=== PATIENT | female | born 1980 | race Caucasian/White ===

== ENCOUNTER 2023-07-10 15:37 | Emergency (ER) | payer OTHER, SELFPAY ==
[2023-07-10 16:27] VITALS: BP 106/74; PULSE 102; RESP 16; TEMP 36.6; O2SAT 93; BMI 37.5
--- NOTE | 2023-07-10 16:32 | ED.MEDCLEAR ---
HPI - Medical Clearance General Chief complaint: Medical Clearance Stated complaint: medical clearance Time Seen by Provider: 07/10/23 19:27 Source: patient Mode of arrival: ambulatory Limitations: no limitations History of Present Illness ED Provider: Leonidas Cortes PA-C HPI Narrative: 43 yold female with pmh of susbtance abuse presents to the ED for medical clearnace for her detox program. patient was at a detox program and left them. Detox program recommends patient have a UTox test. patient is asympomatic. Related Information Allergies Allergy/AdvReac Type Severity Reaction Status Date / Time No Known Allergies Allergy Verified 07/10/23 16:28 Review of Systems Review of Systems: no complaints. Yes all other systems are reviewed and are negative PMFSH Social History Social History Advance Directives: No Advance Directives Information Provided: No Physical Exam Vital Signs: Vital Signs: Last Vital Signs Temp 97.8 F 07/10/23 19:55 Pulse 100 07/10/23 19:55 Resp 18 07/10/23 19:55 BP 105/57 L 07/10/23 19:55 Pulse Ox 96 07/10/23 19:55 O2 Del Method Room Air 07/10/23 19:55 BMI result Body Mass Index 37.5 Const: General: cooperative, healthy appearing, comfortable, no acute distress, well developed, alert, awake and Physically active Orientation/consciousness: oriented to person, oriented to place, oriented to time and patient oriented x3 HEENT: Head: Yes normal to inspection, Yes No palpable skull fracture present, Yes normocephalic and Yes atraumatic Ears: hearing grossly normal bilaterally, external ears normal, TM's normal bilaterally, TM normal on the right, TM normal on the left, EAC's normal, mastoids normal and no periauricular adenopathy Throat: Yes posterior oropharynx normal, Yes tonsils normal and Yes uvula midline Eyes: General: appearance normal, both eyes and all related structures Neck: Neck: Yes normal visual inspection, Yes full ROM, Yes no lymphadenopathy, Yes no meningeal signs, Yes trachea midline, Yes supple, No anterior neck swelling and No tender Chest: Chest palpation & inspection: normal inspection of the chest and normal palpation of entire chest wall Resp: Effort & Inspection: normal respiratory effort and able to speak in complete sentences Auscultation: clear to auscultation bilaterally Cardio: Jugular venous distension: no JVD Heart sounds: S1 normal heart sound present and S2 normal heart sound present GI: Inspection: Yes normal to inspection Palpation (GI): Soft to palpation, not firm, nontender, no guarding and not rigid : General: Yes no CVA tenderness Back/Spine/Pelvis: Back: no CVA tenderness and No back tenderness Skin: General skin exam: no rashes or lesions noted, elasticity normal and turgor normal Neuro: General: oriented to person, oriented to place, oriented to time, patient oriented x3, moves all extremities, Normal light touch and pain sensation, no meningeal signs, no focal motor deficits, CN's II-XI intact bilaterally and normal sensation to monofilament Extrem: General: Yes normal to inspection, Yes full ROM and Yes capillary refill normal Psych: Appearance: grossly normal, well kempt and not disheveled Course Course Course Narrative: RME: 43-year-old female presents to ED for medical clearance. Patient wants to go back to a detox program. Patient had left. They are requesting detox. Medical Decision Making Medical Decision Making [facility] Narrative: 43 yold female presents to the ED requestinf medical clearance detox. Detox program would like urine tox. Patient is not in distress. patient is well appearing. MORROW positive for benzos, amphetemines, and subaxone. Patient explaeined worrsiome signs and informed to follow up ED and PCP. Differential Diagnosis Differential Diagnoses: The differential diagnosis associated with the presentation includes (Substance uses) Admission/Observation Consideration of admission/observation: Escalation of care including admission/observation considered Lab Data [facility] Lab Attestation statement: I reviewed the patient's lab results. Labs: Lab Results 07/10/23 Range/Units 16:53 Urine Color Yellow Urine Appearance Clear Urine pH 5.5 (5.0-9.0) Ur Specific Lenora 1.025 (1.005-1.025) Urine Protein Trace (Neg-Trace) mg/dL Urine Glucose (UA) Negative (Negative) mg/dL Urine Ketones Trace (Negative) mg/dL Urine Blood Negative (Negative) Urine Nitrite Negative (Negative) Ur Leukocyte Esterase Negative (Negative) Urine Test NEGATIVE (NEGATIVE) Urine Opiates Screen Not Detected (Not Detect) Ur Buprenorphine Scrn Positive H (Not Detect) ng/mL Ur Oxycodone Screen Not Detected (Not Detect) ng/mL Urine Methadone Screen Not Detected (Not Detect) ng/mL Urine Fentanyl Screen Not Detected (Not Detect) Ur Barbiturates Screen Not Detected (Not Detect) Ur Phencyclidine Scrn Not Detected (Not Detect) Ur Amphetamines Screen POSITIVE H (Not Detect) U Benzodiazepines Scrn POSITIVE H (Not Detect) Urine Cocaine Screen Not Detected (Not Detect) U Marijuana (THC) Screen Not Detected (Not Detect) Independent Historian Clinical information obtained from an independent historian. History obtained from or confirmed by: Other (patient) External Record Review External record reviewed: Other (prior visits) Discharge Plan Discharge Clinical Impression: Normal exam Patient Disposition: Home, Self-Care Instructions: Normal Exam (ED) Additional Instructions: recommend follow-up with primary care provider. You may show your detox program your urine test. return to the ED for any concerning symptoms. Interventions: ED Discharge Assessment Last Done: 07/10/23 19:55 Discharge Date/Time: 07/10/23 19:55 Print Language: Ecuadorean
[2023-07-10 17:28] LABS: Appearance Urine Clear; Color Urine Yellow; Glucose Urine UA Negative (Negative); Leukocyte Esterase Urine Negative (Negative); Nitrite Urine Negative (Negative); PH 5.5 (5.0-9.0); Specific Gravity - Urine 1.025 (1.005-1.025); Urine Blood Negative (Negative); Urine Ketones Trace mg/dL (Negative); Urine Protein Trace mg/dL (Neg-Trace)
[2023-07-10 17:29] LABS: UPreg QC Valid YES; Urine Pregnancy NEGATIVE (NEGATIVE)
[2023-07-10 18:38] LABS: Amphetamine Screen Urine POSITIVE (Not Detect); Barbiturates, Urine Not Detected (Not Detect); Benzodiazepines Screen Urine POSITIVE (Not Detect); Buprenorphine Scr Positive (Not Detect); Cannabinoid Screen Urine Not Detected (Not Detect); Cocaine Screen Urine Not Detected (Not Detect); Fentanyl, urine Not Detected (Not Detect); Methadone Screen, Urine Not Detected (Not Detect); Opiate Screen Urine Not Detected (Not Detect); Oxycodone Screen Urine Not Detected (Not Detect); Phencyclidine Screen Urine Not Detected (Not Detect)
[2023-07-10 19:32] VITALS: BP 105/57; PULSE 100; RESP 18; TEMP 36.6; O2SAT 96
[2023-07-10 19:55] VITALS: BP 105/57; PULSE 100; RESP 18; TEMP 36.6; O2SAT 96
== END 2023-07-10 19:55 | disposition home or self-care (01) ==
PROVIDERS: Physician Assistant; Emergency Provider Emergency Medicine
DX: Z02.79 Encounter for issue of other medical certificate (principal); Z13.9 Encounter for screening, unspecified
CPT/HCPCS: 80307; 81003; 81025; 99282

== ENCOUNTER 2025-01-25 11:33 | Emergency (ER) | payer OTHER, SELFPAY ==
--- NOTE | ~2025-01-25 | CT_ITS ---
EXAMINATION: CT CHEST WITHOUT CONTRAST CLINICAL INFORMATION: Question infiltrate on chest x-ray. COMPARISON: Chest x-ray performed earlier today at 12:34 PM TECHNIQUE: Multidetector volumetric CT imaging of the chest was done. Axial MIP volume rendering provided. Sagittal and coronal reformatted images were obtained. This CT examination was performed using dose optimization techniques as appropriate, variously including the following: *Automated exposure control *Adjustment of mA and/or kV according to patient size (this includes techniques or standardized protocols for targeted exams where dose is matched to indication/reason for exam; i.e. extremities or head) *Use of iterative reconstruction technique DLP: 217. FINDINGS: [facility]: Well-expanded lungs with linear markings in the right lung base. LUNGS: Lungs are expanded with bilateral lower lobe and right middle lobe interstitial thickening likely chronic atelectasis or scarring. No acute consolidation, mass or nodule seen. MEDIASTINUM: There are lobes are symmetrical and normal. The central trachea and the bronchi are widely patent. Heart size and the great vessels are normal caliber. Small shotty lymph nodes seen in the mediastinum none of which are worrisome. No pericardial effusion seen. CORONARY ARTERY CALCIFICATION: None visualized on this study. PLEURA: Minimal bibasilar pleural thickening and likely tiny left pleural effusion. AXILLA: A small shotty lymph nodes in bilateral axilla which appear benign. The chest wall is unremarkable. UPPER ABDOMEN: Visualized unenhanced liver, spleen, gallbladder and adrenal glands are unremarkable. OSSEOUS STRUCTURES: No aggressive lytic or sclerotic process seen. CT/CT chest wo IV con IMPRESSION: Bilateral lower lobe and right middle lobe interstitial thickening likely chronic postinflammatory scarring or atelectasis. No acute consolidation seen. There is bilateral posterior pleural thickening with tiny left pleural effusion in dependent segments. Fleischner guidelines were followed. Electronically signed by: Christian Jin MD 01/25/2025 03:46 PM EST
--- NOTE | ~2025-01-25 | XR_ITS ---
EXAMINATION: XR CHEST CLINICAL INFORMATION: cough , hypoxia, recent influenza COMPARISON: None available. TECHNIQUE: AP portable view of the chest was obtained. FINDINGS: The cardiac, hilar, and mediastinal contours are normal. Lungs demonstrate linear changes of atelectasis in both lung bases. In the right lower lung there is a suggestion of increased peribronchial markings, for which developing inflammatory airways disease/bronchopneumonia is a consideration. No pneumothorax or effusion. No focal osseous or soft tissue abnormality. XR/XR chest 1V IMPRESSION: 1. Possible developing inflammatory airways disease/subtle bronchopneumonia in the right lower lobe, given the appropriate clinical context. 2. No effusions. 3. Linear type atelectasis or scarring in both lung bases. Electronically signed by: Shay Gamble MD 01/25/2025 12:45 PM [facility]
[2025-01-25 11:47] VITALS: BP 94/64; PULSE 80; O2SAT 93
[2025-01-25 11:50] VITALS: BP 109/75; PULSE 76; RESP 18; TEMP 36.4; O2SAT 88; BMI 27.6
--- NOTE | 2025-01-25 12:24 | ED_ITS ---
HPI - General Adult General Chief complaint: General Medical Stated complaint: LOW BLOOD PRESSURE Time Seen by Provider: 01/25/25 12:16 History of Present Illness ED Provider: [place] HPI narrative: 44 she has sent from a local psychiatric facility [facility] purportedly had low blood pressure is not documented what her blood pressure was this morning also had a sat of 88% on room air patient was recently at [facility] she is a poor historian herself [facility] it is discharge summary implies that she was there for least a few days mostly for psychiatric reasons, hallucination. Also was found to be pancytopenic which they attributed to influenza and the pancytopenia improved at discharge WBC 2.6 ANC 1100, platelets 162. Discharge on January 17. The patient takes midodrine was given a dose prior to arrival. Pressure on arrival here 100/7 5 sat 92 on 1 L nasal cannula Onset (ago): minute(s) Related Data Allergies Allergy/AdvReac Type Severity Reaction Status Date / Time No Known Allergies Allergy Verified 01/25/25 11:53 [facility] Social History Social History Smoked in Last 30 Days: Yes Use of substances other than those prescribed or required for medical reasons: No Advance Directives: No Advance Directives Information Provided: Yes Do you have a plan to hurt others: No Plan Physical Exam ED Exam Exam: EXAM: Gen: Sleepy well appearing, well hydrated. Head: Atraumatic Eyes: Anicteric, Normal conjunctiva. ENT: Moist mucosa, no pallor. ? Neck: Supple. Skin: ?No observable rash or bruising on exposed or examined skin Respiratory: Breathing comfortably, No distress.Clear to auscultation bilaterally, symmetric chest expansion, No wheeze, rales, ronchi. Cardiovascular: Regular rate and rhythm. No murmurs or rub. Well perfused periphery, warm extremities. No edema. ? Abdominal: No focal tenderness. Soft, no objective distension. No palpable masses or obvious organomegaly. ?No guarding, no rebound tenderness or other peritoneal findings. : No flank tenderness. Neuro: Alert. Gross movement of all extremities intact. ? Psych: Calm. Cooperative. MSK: No grossly visible deformity. Vital signs: See flowsheet Vital Signs: Vital Signs - 24 hr 01/25/25 11:50 Temperature 97.6 F Pulse Rate 76 Respiratory Rate 18 Blood Pressure 109/75 Pulse Oximetry 88 L Oxygen Delivery Method Room Air BMI result Body Mass Index 27.6 Medications Administered Discontinued Medications Generic Name Dose Route Start Last Admin Trade Name Gume PRN Reason Stop Dose Admin Amoxicillin/Clavulanate Potassium 875 mg 01/25/25 12:50 01/25/25 13:02 Amoxicillin/Potassium Clav 875 Mg Tablet PO 01/25/25 12:51 875 mg ONCE ONE Administration Azithromycin 500 mg 01/25/25 12:50 01/25/25 13:02 Azithromycin 500 Mg Tablet PO 01/25/25 12:51 500 mg ONCE ONE Administration Sodium Chloride 1,000 mls @ 999 mls/hr 01/25/25 14:00 01/25/25 15:46 Ns IV 01/25/25 15:00 Infused .Q1H1M OLMAN Infusion Medical Decision Making Medical Decision Making [facility] Narrative: 44-year-old female, apparently symptomatic with light-headedness at the psychiatric facility she's been staying at. They reported low blood pressure without specifics. EMS report from nursing staff there was that she's been treated for bronchitis and UTI. Patient to [facility] care. She's a little confused but not grossly encephalopathic, maybe secondary to her underlying psychiatric illness or initiation of new psychiatric medications. She certainly has polypharmacy on that may or appeared. She's not ill or toxic looking. She's a fibro here. Blood pressure low normal. She does not appear hypovolemic or dehydrated. Period. Initials at 88% but gradually titrated off oxygen without hypoxemia. Period. Chest imaging shows scarring but no pneumonia or effusion or other clear pulmonary explanation. No clear explanation, stable for several hours in the ED without hypertension or hypoxia. Differential Diagnosis Orthostasis, Dehydration, pneumonia, polypharmacy, baseline low blood pressure. Lab Data 01/25/25 13:07 01/25/25 13:07 Labs: Lab Results 01/25/25 Range/Units 13:07 WBC 5.0 (4.8-10.8) X10*3/uL RBC 4.94 (4.20-5.50) X10*6/uL Hgb 9.1 L (12.0-16.0) g/dl Hct 29.7 L (37.0-47.0) % MCV 60.1 L (80.0-98.0) fL MCH 18.4 L (27.0-33.0) pg MCHC 30.6 L (31.0-35.0) g/dl RDW 18.3 H (11.0-16.0) % Plt Count 202 (160-400) X10*3/uL MPV Not Reportable Immature Gran % (Auto) 0.2 (0.0-0.4) % Neut % (Auto) 53.0 (45-73) % Lymph % (Auto) 35.8 (20-40) % [place] % (Auto) 7.6 (2-11) % Eos % (Auto) 2.4 (0-4) % Baso % (Auto) 1.0 (0-2) % Lymph # (Auto) 1.8 (1.2-4.9) X10*3/uL [place] # (Auto) 0.4 (0.1-1.2) X10*3/uL Eos # (Auto) 0.1 (0.0-0.4) X10*3/uL Baso # (Auto) 0.1 (0.0-0.2) X10*3/uL Abs Immat Gran (auto) 0.01 (0.00-0.03) X10*3/uL Absolute Neuts (auto) 2.6 (2.0-8.3) x10*3/uL Absolute Nucleated RBC 0.000 (0.0-0.012) X10*3/uL Nucleated RBC % (auto) 0.0 (0.0-0.2) /100WBC Smear Path Review SEE NOTE Sodium 141 (135-145) mmol/L Potassium 5.4 H (3.3-5.1) mmol/L Chloride 105 (96-108) mmol/L Carbon Dioxide 31 H (22-29) mmol/L Anion Gap 10 L (12-20) BUN 19 H (9-16) mg/dL Creatinine 1.01 (0.5-1.4) mg/dL Estim Creat Clear Calc 75.7 Estimated GFR 59 Random Glucose 88 (60-115) mg/dL Calcium 9.6 (8.4-10.2) mg/dL Beta HCG, Quant < 2 mIU/mL Independent Interpretation I performed an independent interpretation of an: EKG (Sinus rhythm, normal QTC, normal access, no ischemic changes. ) Radiology Impression Discussion of test interpretation with radiology: I have reviewed the radiologist's reading. External Record Review External record reviewed: Other (Provided psychiatric facility documents. ) Discharge Plan Discharge Clinical Impression: Transient hypotension Patient Disposition: Home, Self-Care Instructions: Hypotension (ED) Additional Instructions: The patient was evaluated for low blood pressure she had received Midrin own. In the emergency department she was hemodynamically stable awake alert and comfortable. X-ray of the chest was done which showed the possibility of pneumonia developing given her current psychiatric inpatient hospitalization we felt it reasonable to definitively evaluate with CT of the chest. Her oxygen on arrival was 88% on room air but she was monitored several hours and she remained with normal oxygen on room air after this transient event unclear if that was a level taken while she was sleeping but we feel she is safe and comfortable to be discharged back. Interventions: ED Discharge Assessment Last Done: 01/25/25 17:09 Discharge Date/Time: 01/25/25 17:10 Print Language: Maltese
[2025-01-25 13:07] VITALS: BP 97/59; PULSE 76; RESP 14; TEMP 36.6; O2SAT 93
[2025-01-25 13:13] LABS: MANUAL DIFF FLAG NO
[2025-01-25 13:18] LABS: Hematocrit 29.7 % (37.0-47.0); Hemoglobin 9.1 g/dl (12.0-16.0); Imm Gran Abs Auto 0.01 X10*3/uL (0.00-0.03); Imm Gran Pct Auto 0.2 % (0.0-0.4); Lymphocytes Absolute Auto 1.8 X10*3/uL (1.2-4.9); Mean Corpuscular HGB Conc 30.6 g/dl (31.0-35.0); Mean Corpuscular Hemoglobin 18.4 pg (27.0-33.0); Mean Corpuscular Volume 60.1 fL (80.0-98.0); NRBC Abs Auto 0.000 X10*3/uL (0.0-0.012); NRBC Pct Auto 0.0 /100WBC (0.0-0.2); Platelet Count 202 X10*3/uL (160-400); Red Blood Count 4.94 X10*6/uL (4.20-5.50)
[2025-01-25 13:19] LABS: White Blood Count 5.0 X10*3/uL (4.8-10.8)
[2025-01-25 13:36] LABS: Anion Gap 10 (12-20); Blood Urea Nitrogen 19 mg/dL (9-16); Calcium 9.6 mg/dL (8.4-10.2); Carbon Dioxide 31 mmol/L (22-29); Chloride 105 mmol/L (96-108); Creatinine Clr Calc Pharmacy 75.7; Estimated Glomerular Filt Rate 59; Potassium 5.4 mmol/L (3.3-5.1); Sodium 141 mmol/L (135-145)
--- OUTSIDE RECORDS SUMMARY | 2025-01-25 14:24 | XMS_ITS | Patient Health Record ---
Author Organization [facility] Address [address] [address] Care Team Providers Care Computer Engineering Technologist Name Role Phone Chance Johnstonsonalamy Primary Care Provider Loulou landaverde Jenna Houser Unavailable [phone] Allergies No Known Allergies Reason For Referral No Information Medications Medication SIG (Take, Route, Frequency, Duration) Notes Start Date End Date Status Vosevi 400 mg-100 mg-100 mg tablet TAKE 1 TABLET BY MOUTH EVERY DAY; Duration: 28 Active clonazePAM 2 mg tablet 1 tab(s) orally 2 times a day Active cloBAZam 5 mg film 1 ea orally once a day Active Wellbutrin 100 mg tablet 1 tab(s) orally 2 times a day Active gabapentin 400 mg capsule 1 cap(s) orall y 3 times a day Active lamoTRIgine 200 mg tablet 1 tab(s) orall y 2 times a day Active doxepin 10 mg capsule 1 cap(s) orally 3 times a day Active ARIPiprazole 30 mg tablet 1 tab(s) orall y once a day Active Advair Diskus 1puff qd qd Acti ve Methadone 60mg qam Activ e Immunizations Vaccine Route Administration Date Status Comme nts Hepatitis A HAVRIX IM Intramuscular 11/26/2021 Administere d Hepatitis B IM Intramuscular 11/26/2021 Administered Social History Social History Additional Details Category Social Info Options Details Social History Occup. exposure: none Travel ouside [place]: no Alcohol: no Sexually active: no Drug use: no Exercise: no Home smoke detector use: no Caffeine: no Marital Status: single Children: sons: daughters: Pets: none Checked Cholesterol levels yes Seat belt usage Yes Gun in house No Problems Problem Type SNOMED Code ICD Code Onset Dates Problem Status W/U Status Risk Notes Problem Tobacco use (307480789) Tobacco use (Z72.0) Active confirmed Problem Chronic hepatitis C (500806769) Chronic hepatitis C without hepatic coma (B18.2) Active confirmed Problem Bipolar 1 disorder (848821228) Bipolar 1 disorder (F31.9) Active confirmed Problem History of intravenous drug abuse (338974679835413 03) Hx of intravenous drug use in remission (Z87.898) Active confirmed Problem 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
[2025-01-25 14:46] VITALS: BP 104/70; PULSE 78; RESP 18; O2SAT 92
[2025-01-25 17:05] VITALS: BP 109/71; PULSE 80; RESP 18; TEMP 36.6; O2SAT 98
[2025-01-25 17:09] VITALS: BP 109/71; PULSE 80; RESP 18; TEMP 36.6; O2SAT 98
== END 2025-01-25 17:10 | disposition home or self-care (01) ==
PROVIDERS: Emergency Provider Emergency Medicine
DX: I95.89 Other hypotension (principal); Z79.899 Other long term (current) drug therapy
CPT/HCPCS: 36415; 71045; 71250; 80048; 84702; 85025; 96360; 99284

== ENCOUNTER → 2025-01-25 12:26 | Outpatient (BNV) | payer OTHER, SELFPAY | PROVIDERS: Emergency Provider Emergency Medicine; Visit Provider Radiology Diagnostic Radiology | DX: J98.4 Other disorders of lung (principal); J11.1 Influenza due to unidentified influenza virus with other respiratory manifestations; R05.9 Cough, unspecified; R09.02 Hypoxemia | CPT/HCPCS: 71045; 71250 ==